=== PATIENT | female | born 2005 | race African-American/Black ===

== ENCOUNTER 2024-01-31 00:51 | Day surgery (SDC) | payer BC, SELFPAY ==
[2024-01-21 10:53] VITALS: BMI 24.7
--- NOTE | 2024-01-21 10:59 | PC.NURSE ---
Report to the Outpatient Waiting Room, entrance under the green pavilion located off [facility], at time _0700_ on date __01/31/24 . Planned Procedure Time: _0900___. Time changes happen often and if your time is changed the preop area will call you the afternoon before. - You and your visitor will be asked to self-screen and do not enter if you have any COVID symptoms. - A mask is optional within the hospital at this time. Patients may have clear liquids (water, carbonated beverages, clear teas, apple juice) until 3 hours prior to surgery with a maximum of 20 ounces. - No food from midnight until time of surgery - Infants may have breast milk until 4 hours before surgery, infant formula 6 hours prior to surgery. - Children will be allowed to drink immediately following surgery. If applicable, please bring a bottle or sippy cup to assist with drinking. Juice, water, soda, and popsicles are readily available. For infants on formula, please bring formula the day of surgery. Pacifiers are allowed. Take the following medications with a SIP of water the morning of surgery: _N/A DO NOT STOP ANY OF YOUR OTHER PRESCRIPTION MEDICATIONS PRIOR TO SURGERY ?EXCEPT THE FOLLOWING Medications to discontinue per physician ____N/A Date to take last dose__N/A Please no make-up, nail portuguese, hairspray, perfume, deodorant, or body powder the day of surgery. No jewelry (including any body piercings) or valuables the day of surgery, leave them at home. Please take a shower or bath the night before, or the morning of, surgery with an antibacterial soap. Wear comfortable, loose fitting clothing. Children are encouraged to wear pajamas. - Jewelry must be removed prior to entering the operating room. Rings and piercings that are not removed may be cut off. - The hospital will not accept responsibility for valuables. - Please leave all valuables, including medications, at home the day of surgery. If you are going home after surgery, a licensed utility worker driver must drive you home. - NO public transportation without another adult if you receive anesthesia. - We recommend that an adult stay with you for 24 hours following discharge. - We also recommend that you do not drive, make important decision, drink alcoholic beverages, or take any drugs that were not prescribed by your health care provider for at least 24 hours after your discharge time. For Pediatric surgeries, we recommend two adults accompany the child home. Follow any additional instructions given to you from your surgeon. If you or anyone in your household have experienced Covid symptoms in the past week, please notify your surgeon or the nurse liaison at the phone number below for possible testing. Telephone instructions given to _Victoria___and asked if any additional questions and then verbalized understanding. Patient advised to call surgeon office or pre surgery nurse liaison [phone] if any additional questions.
--- NOTE | 2024-01-30 17:30 | PM.IMHP ---
H&P: HPI History of Present Illness Date/Time: 01/30/24 17:30 Chief Complaint: recurrent epistaxis Narrative: planned procedure Review of Systems Review of Systems: All systems reviewed & are unremarkable except as noted in HPI and below PMFSH Past Medical History Medical History Allergies Anxiety Headache Family History Family History Father Diabetes mellitus Mother Asthma Hypertension Grandparent Asthma Hypertension Alcoholism Social History Social History Smoking status: Never smoker Alcohol intake: never Substance use: never Living arrangements: with family Occupation/Education: student Spiritual care concerns: No Meds Home Medications and Allergies Home Medications Medication Instructions Recorded Confirmed Type mupirocin 2 % topical ointment 1 applic topical QID #22 grams 07/18/22 01/21/24 Rx etonogestrel 68 mg subdermal See Rx Instructions .Route .COMPLEX 01/21/24 01/21/24 History implant (Nexplanon) Allergies Allergy/AdvReac Type Severity Reaction Status Date / Time No Known Drug Allergies Allergy none Verified 01/21/24 10:44 Exam Narrative: right-sided telangiectatic vessels to Assessment and Plan Assessment and plan (1) Recurrent epistaxis: Code(s): R04.0 - Epistaxis Status: Acute Assessment and Plan: plan OR right-sided nasal cautery will use bipolar possibly suction Bovie risks discussed bleeding infection damage to surrounding structures need for further procedures need for cautery septal perforation failure to resolve symptoms patient voiced understanding of these risks.? Mask anesthesia okay from my standpoint.
[2024-01-31] VITALS (9 sets, daily range): BP systolic 92–131; BP diastolic 51–80; PULSE 42–61; RESP 11–18; TEMP 36.1–36.3; O2SAT 99–100
--- NOTE | 2024-01-31 07:18 | WPDHPUPDATE1 ---
History and Physical Update Update Date/Time: 01/31/24 07:18 History and Physical has been reviewed, including an updated exam of the patient. There are NO changes in the patient's condition. Risks, benefits, and alternatives have been discussed and questions answered. Patient agrees to proceed with procedure.
--- NOTE | 2024-01-31 08:51 | WPDANESEPPF ---
Anes - Initial Pre Proc Eval Procedure: Operation Date: 01/31/24 10:00 Proposed Procedures p Right Side Nasal Cautery - Michael Hwang MD Date/Time: 01/31/24 08:51 Surgeon: Michael Hwang MD Pre Op Diagnosis: Recurrent Epistaxis Patient Data Age: 18 Gender: F Height: 1.66 m Weight: 68.49 kg Last Vital Signs O2 Del Method Room Air 01/21/24 11:09 Allergies Allergy/AdvReac Type Severity Reaction Status Date / Time No Known Drug Allergies Allergy none Verified 01/31/24 09:12 Home Medications Medication Instructions Recorded Confirmed Type mupirocin 2 % topical ointment 1 applic topical QID #22 grams 07/18/22 01/31/24 Rx etonogestrel 68 mg subdermal See Rx Instructions .Route .COMPLEX 01/21/24 01/31/24 History implant (Nexplanon) Patient hx anesthesia problems: none Family hx anesthesia problems: none Results Review: All pre-operative results and documents have been reviewed as part of the pre-operative evaluation. [facility] Past Medical History Medical History Allergies Anxiety Headache Family History Family History Father Diabetes mellitus Mother Asthma Hypertension Grandparent Asthma Hypertension Alcoholism Social History Social History Smoking status: Never smoker Alcohol intake: never Substance use: never Living arrangements: with family Occupation/Education: student Spiritual care concerns: No Anes - Eval Final PreProcedure Day of Procedure 01/31/24 08:51 Patient weight: overweight Heart: regular rate and rhythm Lungs: clear to auscultation Airway: Mallampati scale class III Neurological: alert and oriented Last oral intake: >/= 8 hours ASA classification: II Emergent: no Anesthetic plan: proceed Anesthesia type and monitoring: general LMA and standard monitoring Results Review: All pre-operative results and documents have been reviewed as part of the pre-operative evaluation. Informed Consent: The patient's anesthetic plan and its attendant risks and benefits were discussed with the patient/family/POA. Questions were solicited and answers provided to the satisfaction of the patient/family/POA.
[2024-01-31] MEDS: ACETAMINOPHEN 500 MG TABLET 1000 MG PO (09:02)
[2024-01-31] MEDS: LACTATED RINGERS 1,000 ML 30 ML IV CONT (09:04)
[2024-01-31] MEDS: OXYMETAZOLINE HCL 0.05% NAS 15 ML BTL (*BKC) 1 SPRAY NASAL (09:52)
[2024-01-31] MEDS: MUPIROCIN 2% OINT 22 GM TUBE 1 APPLIC EACH NARE (09:52)
--- NOTE | 2024-01-31 10:08 | P.OP_ITS ---
Procedure Note - Detailed Date of Procedure 01/31/24 Pre-op Diagnosis Recurrent Epistaxis Post-op Diagnosis Same Procedure Performed Nasal endoscopy, bilateral nasal cautery Surgeon Michael Hwang MD Anesthesia General ( LMA) Indications see above Findings right-sided 2 telangiectatic vessels 1 anterior 1 several cm posterior left- sided 1 telangiectatic vessel slightly behind the right-sided vessel. Mother gave permission to cauterize this vessel as well. Slight overlap between the 2 vessels anteriorly Description of Procedure patient identified consent verified preop. Patient brought to the operating. Time-out performed. General anesthesia induced LMA secured. Patient prepped draped positioned procedure confirmed 2nd time-out performed. Bilateral nasal endoscopy performed 2 vessels on the right side 1 on the left suction Bovie electrocautery setting of 8 was utilized and then 10. Right Afrin-soaked pledgets were placed behind the vessels bilaterally mother informed I recommended cauterize in the left side given that there is only minimal overlap and it looked like it had recently bled slightly. Mother gave consent. Risks discussed of septal possible septal perforation if there is any overlap. Mother voiced understanding. Cautery performed on the right mid vessel slightly larger cauterize this down to the septum right anterior cauterize the vessel down to the septum is was very large this is the culprit vessel most likely with the right-sided recurrent epistaxis. Left vessel gently cauterize not down to the septum. No visible overlap between anterior cautery sites right and left. Mupirocin was placed over all of the cautery sites patient tolerated the procedure well less than 1 cc of any bleeding no complications care the patient given back to Anesthesiology I performed all dictated portions of procedure Estimated Blood Loss 1 Packing No Pathology None sent Condition Stable Disposition PACU [facility] Billing Surgery - Charge Forward: Surgery Billing
[2024-01-31] MEDS: fentaNYL CITRATE INJ (*CRX) 100 MCG/2 ML VIAL 25 MCG IV PUSH (10:50)
[2024-01-31] MEDS: oxyCODONE HCL (*CRX) 5 MG TAB IR PO (12:00)
== END 2024-01-31 12:10 | disposition home or self-care (01) ==
PROVIDERS: PCP Pediatrics; Visit Provider Otolaryngology
PROC: (CPT 31238; principal; 2024-01-31 10:00)
DX: R04.0 Epistaxis (principal)
CPT/HCPCS: 31238; A9270; J1100; J2250; J2405; J2704; J3010; J7120

== ENCOUNTER 2024-06-21 16:31 | Emergency (ER) | payer BC, SELFPAY ==
--- NOTE | ~2024-06-21 | US_ITS ---
US pelvic complete w TV Ordering provider: Francisca Gracia PA-C History: . ovarian cyst, pelvic pain, r/o torsion . Comparison: None. Technique: Transabdominal and endovaginal ultrasound of the pelvis (Doppler ultrasound interrogation techniques used as needed for this exam.) FINDINGS: CERVIX: Normal. UTERUS: Measures 7.9x 4.6x 4.3 cm in length which is within normal limits and is anteverted. No myom etrial masses. ENDOMETRIUM: Normal in thickness. Minimal fluid in the area of the left adnexa. RIGHT OVARY: Normal in size measuring 4.2x 3.8x 3.3 Normal echotexture. Doppler vascular flow present . Large cyst is seen measuring 4.1 x 3.8 x 3.3 cm. LEFT OVARY: Normal in size measuring 2.7x 1.2x 2.9 cm. Normal echotexture. Doppler vascular flow present. ADNEXA: Normal. No mass. IMPRESSION: Large right ovarian cyst. Minimal fluid in the left adnexal area. Otherwise, normal pelvic ultrasound . Reviewed, dictated and finalized at location A. IMPRESSION: Large right ovarian cyst. Minimal fluid in the left adnexal area. Otherwise, no rmal pelvic ultrasound.
--- NOTE | ~2024-06-21 | CT_ITS ---
CT abdomen pelvis w con Ordering provider: Francisca Gracia PA-C History: 18 years Female with . lower abdominal pain . Comparison: None. Technique: CT abdomen and pelvis with IV and without oral contrast. Automated exposure control and it erative reconstruction technique were employed. The dose-length product was 209.07 mGy-cm. 100 mL Omn ipaque 350 was given IV. Findings: VISUALIZED LOWER CHEST: Normal. UPPER ABDOMINAL ORGANS: Liver: Normal. Gallbladder: Normal. Spleen: Normal. Stomach/duodenum: Normal. Pancreas: Normal. Adrenals: Normal. Kidneys: Fullness of the renal pelvis bilaterally more on the left side which may indicate pelviurete meagan junction stenosis or due to distended urinary bladder.. PELVIC ORGANS: The bladder is normal. Right ovarian cyst measuring 5 cm. Hydrosalpinx is a possibili ty. Further evaluation advised. BOWEL AND MESENTERY: Colon: No evidence of diverticulitis.. The appendix is not demonstrated. Small Bowel: Normal. No obstruction. Peritoneum/mesentery: No free air. Minimal Free fluid seen in the right side of the pelvis. No mesent donna lymphadenopathy. Prominent vessel is seen originating from the inferior mesenteric vein extendin g to the right side with hyperdense material seen in the before meals: Which may be hemorrhagic or ma lformation in the wall of the colon further evaluation with colonoscopy is advised. RETROPERITONEUM: Normal aorta. No retroperitoneal lymphadenopathy. MUSCULOSKELETAL: Superficial soft tissues: The superficial soft tissues are normal. Bones: Normal spine. IMPRESSION: 1. No evidence of appendicitis, diverticulitis or intestinal obstruction. Hyperdense material seen i n the cecum and ascending colon which is not extending in the bowel may indicate AVM. Although less l ikely bleeding. Colonoscopy is advised for evaluation. 2. Hypodensity in the right side today to assess which may indicate a cyst in the ovary versus a hyd rosalpinx. Further evaluation advised. 3. Minimal fullness of the renal pelvis bilaterally which may be due to overdistended bladder. Follo w-up advised Reviewed, dictated and finalized at location A. IMPRESSION: 1. No evidence of appendicitis, diverticulitis or intestinal obstruction. Hype rdense material seen in the cecum and ascending colon which is not extending in the bowel may indicate AVM. Although less likely bleeding. Colonoscopy is advi sed for evaluation. 2. Hypodensity in the right side today to assess which may indicate a cyst in the ovary versus a hydrosalpinx. Further evaluation advised. 3. Minimal fullness of the renal pelvis bilaterally which may be due to overdi stended bladder. Follow-up advised
[2024-06-21 16:33] VITALS: BP 118/84; PULSE 90; RESP 16; TEMP 36.9; O2SAT 100
[2024-06-21 16:52] LABS: Basophils Percent Auto 0.3 % (0.2-1.2); Eosinophils Percent Auto 0.1 % (0-4.4); Hematocrit 42.3 % (37.0-47.0); Hemoglobin 14.7 g/dL (12.0-15.0); Immature Granulocyte Absolute 0.03 K/mm3 (0.00-0.031); Immature Granulocyte Percent A 0.3 % (0-0.5); Lymphocytes Absolute Auto 2.37 K/mm3 (0.9-3.2); Mean Corpuscular HGB Conc 34.8 g/dl (32-36); Mean Corpuscular Hemoglobin 31.8 pg (26-34); Mean Corpuscular Volume 91.6 fl (80-100); Mean Platelet Volume 10.4 fl (7.4-10.4); Monocytes Absolute Auto 0.7 K/mm3 (0.1-0.6); Monocytes Percent Auto 6.8 % (2.6-8.5); Neutrophils Absolute Auto 6.8 K/mm3 (1.3-6.7); Neutrophils Percent Auto 68.5 % (45.5-73.1); Platelet Count Result 263 k/mm3 (150-375); Red Blood Count 4.62 M/mm3 (4.2-5.4); Red Cell Distribution Width 12.3 % (11.5-14.5); White Blood Count 9.9 K/mm3 (4.5-10.0)
[2024-06-21 17:02] LABS: Alanine Aminotransferase 20 U/L (6-35); Albumin Level 4.8 g/dL (3.7-5.6); Alkaline Phosphatase 67 U/L (45-116); Anion Gap 7 mmol/L (4-12); Aspartate Amino Transferase 25 U/L (14-36); Bilirubin,Total 2.1 mg/dL (0.2-1.3); Blood Urea Nitrogen 7 mg/dL (8-21); Calcium 9.5 mg/dL (8.9-10.7); Carbon Dioxide 24 mmol/L (22-30); Chloride 101 mmol/L (98-107); Estimated CRCL calculation 115 ml/min; Estimated Glomerular Filt Rate > 60; Glucose 78 mg/dL (65-110); Lipase 72 U/L (23-300); Potassium 3.1 mmol/L (3.4-5.0); Sodium 132 mmol/L (134-143)
--- NOTE | 2024-06-21 18:07 | ED.ABDPAIN ---
HPI - Abdominal Pain General Chief Complaint: Abdominal Pain Stated Complaint: abd pain Time Seen by Provider: 06/21/24 17:54 Source: patient Mode of arrival: ambulatory Limitations: no limitations History of Present Illness HPI narrative: This is a 18 year old female that presents to the ER for lower abdominal pain. Ongoing since last night. Reports associated nausea. Denies fever, vomiting, diarrhea, dysuria or hematuria. Related Data Home Medications Medication Instructions Recorded Confirmed etonogestrel 68 mg subdermal See Rx Instructions .Route .COMPLEX 01/21/24 02/19/24 implant (Nexplanon) Allergies Allergy/AdvReac Type Severity Reaction Status Date / Time No Known Drug Allergies Allergy none Verified 06/21/24 17:54 Review of Systems Review of Systems: CONSTITUTIONAL: Denies fever GASTROINTESTINAL: Reports abdominal pain, nausea. Denies vomiting, or diarrhea. GENITOURINARY: Denies dysuria or hematuria. All systems reviewed & are unremarkable except as noted in HPI and below PMFSH Past Medical History Medical History Allergies Anxiety Headache Family History Family History Father Diabetes mellitus Mother Asthma Hypertension Grandparent Asthma Hypertension Alcoholism Social History Social History Smoking status: Never smoker Alcohol intake: never Substance use: never Living arrangements: with family Occupation/Education: student Spiritual care concerns: No Exam Narrative: GENERAL: Well-appearing, well-nourished, and in no acute distress. HEAD: Normocephalic, atraumatic. EYES: EOMI. CHEST: Clear to auscultation. No respiratory distress. No wheezes rales or rhonchi HEART: Regular rate and rhythm. No murmur heard. Normal peripheral pulses. ABDOMEN: Soft, nondistended, normal active bowel sounds. Tender to palpation throughout the lower abdomen, without guarding EXTREMITIES: Normal range of motion. No edema. SKIN: Warm, dry, no rash. NEURO: No focal deficits. Alert and oriented x3. PSYCH: Normal mood and affect Course Course Emergency Course: Patient and family updated on workup and agree with plan of care Vital Signs Vital signs: Vital Signs Temperature 98.4 F 06/21/24 16:33 Pulse Rate 90 06/21/24 16:33 Respiratory Rate 16 06/21/24 16:33 Blood Pressure 118/84 06/21/24 16:33 Pulse Oximetry 100 06/21/24 16:33 Temperature 98.1 F 06/21/24 23:36 Pulse Rate 66 06/21/24 23:36 Respiratory Rate 17 06/21/24 23:36 Blood Pressure 120/66 06/21/24 23:36 Pulse Oximetry 99 06/21/24 23:36 MDM - Abdominal Pain MDM Narrative Medical decision making narrative: patient presents to the emergency department for abdominal pain and nausea. Ongoing since yesterday. She is afebrile and nontoxic appearing. Her vitals are stable. Cbc without leukocytosis. Metabolic panel some evidence of dehydration. Patient hydrated with a L of IV fluids in the ER. Urine with possible evidence of infection. This will be sent for culture. Patient will be started on oral antibiotics. test is negative. CT abdomen and pelvis shows an abnormality in the colon, recommend further evaluation with colonoscopy. Right ovarian cyst. Minimal fullness in the bilateral renal pelvis. Pelvic ultrasound shows a large right ovarian cyst. Minimal free fluid in left adnexa, otherwise normal pelvic ultrasound. Normal vascular flow to the ovaries. Patient and family updated on workup and agree with plan of care. She is to follow-up with gynecology and Gastroenterology. She was given warnings to return to the Differential Diagnosis Differential diagnosis: Likely acute appendicitis, calculus of kidney, constipation, diverticulitis and other (UTI, ovarian cyst, ovarian torsion, dehydration, electrol
[2024-06-21] MEDS: SODIUM CHLORIDE 0.9% IV 1,000 ML 999 ML IV CONT (18:23)
[2024-06-21] MEDS: ONDANSETRON INJ 4 MG/2 ML VIAL IV PUSH (18:24)
[2024-06-21] MEDS: FAMOTIDINE 20 MG/2 ML VIAL IV PUSH (18:25)
[2024-06-21 18:29] VITALS: BP 107/71; PULSE 59; RESP 20; O2SAT 100
[2024-06-21 18:51] LABS: BEDSIDEPREGUCG Negative (Negative)
[2024-06-21 19:41] LABS: Bacteria Urine 1+ /hpf; Non Pathogenic Casts 0-2; RBC Urine 0-2 /hpf (0-2); Squamous Epithelial Cell Urine Moderate /hpf (Few)
[2024-06-21 19:47] LABS: Add Urine Microscopic? YES; Appearance Urine Clear (Clear); Color Urine Yellow (Yellow)
[2024-06-21 19:48] LABS: Bilirubin Urine Negative (Negative); Blood Urine Trace-intact (Negative); Glucose Urine UA Negative (Negative); Ketones Urine 3+ mg/dL (Negative); Leukocyte Esterase Ur Trace LEU/UL (Negative); Nitrate Urine Negative (Negative); Protein Urine Negative (Negative); Specific Grav Ur <= 1.005 (1.001-1.035); Urobilinogen Urine 0.2 mg/dL (<2.0); pH Urine 6.5 (5.0-9.0)
[2024-06-21] MEDS: METOCLOPRAMIDE HCL INJ 10 MG/2 ML VIAL IV PUSH (21:16)
[2024-06-21] MEDS: diphenhydrAMINE HCl INJ 50 MG/ML VIAL 25 MG IV PUSH (21:17)
[2024-06-21 21:19] VITALS: BP 134/77; PULSE 93; RESP 16; TEMP 36.8; O2SAT 100
[2024-06-21 23:36] VITALS: BP 120/66; PULSE 66; RESP 17; TEMP 36.7; O2SAT 99
== END 2024-06-21 23:36 | disposition home or self-care (01) ==
PROVIDERS: Emergency Provider Physician Assistant; PCP Pediatrics
DX: N39.0 Urinary tract infection, site not specified (principal); E87.6 Hypokalemia; N83.201 Unspecified ovarian cyst, right side; F41.9 Anxiety disorder, unspecified
CPT/HCPCS: 36415; 74177; 76830; 76856; 80053; 81001; 81025; 83690; 83735; 85025; 87086; 87088; 96361; 96374; 96375; 99284; J1200; J2405; J2765; J7030; Q9967

== ENCOUNTER 2024-06-25 13:12 | Outpatient (CLI) | payer BC, SELFPAY | END 2024-06-25 13:13 | disposition home or self-care (01) | PROVIDERS: PCP Pediatrics; Visit Provider Obstetrics & Gynecology | DX: N83.201 Unspecified ovarian cyst, right side (principal) | CPT/HCPCS: 36415; 86850; 86900; 86901 ==

== ENCOUNTER 2024-06-26 03:28 | Day surgery (SDC) | payer BC, SELFPAY ==
--- NOTE | 2024-06-23 12:52 | PM.IMHP ---
H&P: HPI History of Present Illness Date/Time: 06/23/24 12:52 Chief Complaint: right ovarian cyst and pelvic pain Narrative: pleasant 18-year-old 0 the benefit for diagnostic laparoscopy with cystectomy secondary to severe pelvic pain. She was seen in the ER and her ovarian cyst was seen she rates her pain 8/10 and has required narcotic pain medicine. She will undergo laparoscopy cystotomy cystectomy. Risks and benefits were including min exclusive of , aspiration bleeding, transfusion, perforation injury bowel, bladder, ureters, or other internal organs the new for open laparotomy. She had all questions answered. She received the ACOG entitled laparoscopy she proceeded PMFSH Past Medical History Medical History Allergies Anxiety Headache Family History Family History Father Diabetes mellitus Mother Asthma Hypertension Grandparent Asthma Hypertension Alcoholism Social History Social History Smoking status: Never smoker Alcohol intake: never Substance use: never Living arrangements: with family Occupation/Education: student Spiritual care concerns: No Meds Home Medications and Allergies Home Medications Medication Instructions Recorded Confirmed Type etonogestrel 68 mg subdermal See Rx Instructions .Route .COMPLEX 01/21/24 02/19/24 History implant (Nexplanon) mupirocin 2 % topical ointment 1 applic topical BID #22 grams 02/19/24 02/19/24 Rx nitrofurantoin 100 mg PO Q12H 5 days #10 caps 06/21/24 Rx monohydrate/macrocrystals 100 mg capsule (Macrobid) ondansetron 4 mg disintegrating 4 mg PO Q8H PRN nausea and 06/21/24 Rx tablet vomiting #10 tabs potassium chloride 20 mEq oral 20 meq PO DAILY 3 days #30 ea 06/21/24 Rx packet Allergies Allergy/AdvReac Type Severity Reaction Status Date / Time No Known Drug Allergies Allergy none Verified 06/21/24 17:54 Exam Const: General: cooperative, healthy appearing, comfortable and average body habitus Orientation/consciousness: oriented to person, oriented to place and oriented to time Resp: Effort & Inspection: normal respiratory effort Cardio: Rate: regular rate Rhythm: regular rhythm Heart sounds: S1 normal heart sound present and S2 normal heart sound present GI: Inspection: normal to inspection : Speculum Exam - Vagina: normal appearance of the vagina Speculum Exam - Cervix: normal appearance of the cervix Bimanual exam- vagina & uterus: Uterine tenderness Bimanual Exam- Adnexa, other: tender on the right Assessment and Plan Assessment and plan (1) Right ovarian cyst: Code(s): N83.201 - Unspecified ovarian cyst, right side Status: Acute (2) Pelvic pain: Code(s): R10.2 - Pelvic and perineal pain Status: Acute Assessment and Plan: proceeded with laparoscopy and right cystectomy
[2024-06-24 09:52] VITALS: BMI 23.3
--- NOTE | 2024-06-24 09:59 | PC.NURSE ---
Report to the Outpatient Waiting Room, entrance under the green pavilion located off [facility], at time _0915_ on date _[id number]_. Planned Procedure Time: _1115_.? Time changes happen often and if your time is changed the preop area will call you the afternoon before. - You and your visitor will be asked to self-screen and do not enter if you have any COVID symptoms. Please call surgeon if you need to reschedule. - A mask is optional within the hospital at this time. Patients may have clear liquids (water, carbonated beverages, clear teas, apple juice) until 3 hours prior to surgery with a maximum of 20 ounces. - No food from midnight until time of surgery and no smoking Take only the following medications with a SIP of water on the morning of surgery: ___Nitrofuratoin DO NOT STOP ANY OF YOUR OTHER PRESCRIPTION MEDICATIONS PRIOR TO SURGERY EXCEPT THE FOLLOWING Medications to discontinue per physician ____None Date to take last dose Please no make-up, nail estonian, hairspray, perfume, deodorant, or body powder the day of surgery.? No jewelry (including any body piercings) or valuables the day of surgery, leave them at home.? Please take a shower or bath the night before, or the morning of, surgery with an antibacterial soap.? Wear comfortable, loose fitting clothing.? - Jewelry must be removed prior to entering the operating room.? Rings and piercings that are not removed may be cut off. - The hospital will not accept responsibility for valuables.? - Please leave all valuables, including medications, at home the day of surgery. If you are going home after surgery, a licensed truck driver teamster must drive you home.? - NO public transportation without another adult if you receive anesthesia. - We recommend that an adult stay with you for 24 hours following discharge. - We also recommend that you do not drive, make important decision, drink alcoholic beverages, or take any drugs that were not prescribed by your health care provider for at least 24 hours after your discharge time. Follow any additional instructions given to you from your surgeon. Telephone instructions given to _Victoria__and asked if any additional questions and then verbalized understanding. Patient advised to call surgeon office or pre surgery nurse liaison [phone] if any additional questions.
[2024-06-26] VITALS (9 sets, daily range): BP systolic 109–152; BP diastolic 68–90; PULSE 60–118; RESP 12–16; TEMP 36.3–36.8; O2SAT 100
--- NOTE | 2024-06-26 05:30 | WPDHPUPDATE1 ---
History and Physical Update Update Date/Time: 06/26/24 05:30 History and Physical has been reviewed, including an updated exam of the patient. There are NO changes in the patient's condition. Risks, benefits, and alternatives have been discussed and questions answered. Patient agrees to proceed with procedure.
[2024-06-26] MEDS: LACTATED RINGERS 1,000 ML 30 ML IV CONT ×2 (10:00→12:40)
[2024-06-26] MEDS: ACETAMINOPHEN 500 MG TABLET 1000 MG PO (10:00)
[2024-06-26] MEDS: KETOROLAC 15 MG/ML VIAL (*BKC) IV PUSH (10:05)
--- NOTE | 2024-06-26 10:40 | P.PNAN_ITS ---
Anes - Initial Pre Proc Eval Procedure: Operation Date: 06/26/24 11:15 Proposed Procedures p Laparoscopic Right Ovarian Cystectomy - Joseph Tao MD Date/Time: 06/26/24 10:40 Surgeon: Joseph Tao MD Pre Op Diagnosis: Pelvic Pain, Right Ovarian Cyst Patient Data Age: 18 Gender: F Height: 1.65 m Weight: 62.7 kg Last Vital Signs Temp 36.3 C L 06/26/24 09:46 Pulse 96 06/26/24 09:46 Resp 16 06/26/24 09:46 BP 121/90 06/26/24 09:46 Pulse Ox 100 06/26/24 09:46 O2 Del Method Room Air 06/26/24 09:46 Allergies Allergy/AdvReac Type Severity Reaction Status Date / Time No Known Drug Allergies Allergy none Verified 06/26/24 09:44 Home Medications Medication Instructions Recorded Confirmed Type etonogestrel 68 mg subdermal See Rx Instructions .Route .COMPLEX 01/21/24 06/26/24 History implant (Nexplanon) nitrofurantoin 100 mg PO Q12H 5 days #10 caps 06/21/24 06/26/24 Rx monohydrate/macrocrystals 100 mg capsule (Macrobid) ondansetron 4 mg disintegrating 4 mg PO Q8H PRN nausea and 06/21/24 06/26/24 Rx tablet vomiting #10 tabs hydrocodone 5 mg-acetaminophen 325 1 tablet PO Q4H PRN pain #20 tabs 06/26/24 Rx mg tablet Laboratory Tests 06/26/24 10:06 Beta HCG, Quant Pending Patient hx anesthesia problems: none Family hx anesthesia problems: none Results Review: All pre-operative results and documents have been reviewed as part of the pre- operative evaluation. [facility] Past Medical History Medical History Allergies Anxiety Headache Family History Family History Father Diabetes mellitus Mother Asthma Hypertension Grandparent Asthma Hypertension Alcoholism Social History Social History Smoking status: Never smoker Alcohol intake: current Substance use: never Substance use type: marijuana Other substance usage details: twice a week. Living arrangements: with family Occupation/Education: student Spiritual care concerns: No Anes - Eval Final PreProcedure Day of Procedure 06/26/24 10:40 Patient weight: normal Heart: regular rate and rhythm Lungs: clear to auscultation Airway: Mallampati scale class II Neurological: alert and oriented Last oral intake: >/= 8 hours ASA classification: II Anesthetic plan: proceed Anesthesia type and monitoring: general ETT and standard monitoring Results Review: All pre-operative results and documents have been reviewed as part of the pre- operative evaluation. Informed Consent: The patient's anesthetic plan and its attendant risks and benefits were discussed with the patient/family/POA. Questions were solicited and answers provided to the satisfaction of the patient/family/POA.
[2024-06-26] MEDS: SCOPOLAMINE 1 MG PATCH 1 PATCH TRANSDERM (10:46)
[2024-06-26 10:51] LABS: Beta HCG Quantitative < 2.39 mIU/ML
--- NOTE | 2024-06-26 12:28 | P.OP_ITS ---
Procedure Note - Detailed Date of Procedure 06/26/24 Pre-op Diagnosis Pelvic Pain, Right Ovarian Cyst Post-op Diagnosis Other (Pelvic pain /right ovarian cyst/ endometriosis) Procedure Performed laparoscopy destruction cyst destruction endometriosis Surgeon Joseph Tao MD Anesthesia General Indications the 9-year-old female with severe pelvic pain cyst on imaging Findings right ovarian cyst. Otherwise normal-appearing pelvis with 2 small areas of endometriosis along each uterosacral ligament Description of Procedure the patient was prepped draped normal sterile fashion placed in dorsal lithotom y position. Excellent general tracheal anesthesia weighted speculum placed in posterior fornix of vagina. Anterior lip of cervix grasped with single-tooth tenaculum. The Elias's cannula was inserted the cervix and attached to the single-tooth. This will be used later for uterine manipulation. The weighted speculum was removed and bladder drained of clear urine. The gloves were changed. An infraumbilical incision made in the Veress needle passed in the abdomen. Abdomen filled with CO2 gas [id number]. The 5mm trocar advanced with the Optiview and no injury seen. Patient placed in Trendelenburg and a suprapubic incision made. The 5mm trocar advanced under direct visualization assuring no injury. The large right ovarian cyst appeared follicular in nature and was incised with a linear incision draining clear to yellow fluid. The ovary returned to normal size immediately. Two small areas of endometriosis were seen along the right and left uterosacral ligament. These were cauterized at 35 w per 2nd with monopolar cautery. The opposite side appeared within normal limits and photo documentation was undertaken. Irrigation was undertaken to clear. The lower site removed. The upper site removed. The gas after the gas had been removed from the abdomen. The incision was closed with 4 Monocryl and glue instruments vagina. All sponge, needle, instrument counts were correct. There were no immediate complications Estimated Blood Loss 5 Drains No Packing No Pathology None sent Complications No immediate complications Condition Stable Disposition PACU
[2024-06-26] MEDS: fentaNYL CITRATE INJ (*CRX) 100 MCG/2 ML VIAL 25 MCG IV PUSH ×4 (12:46→13:18)
== END 2024-06-26 15:00 | disposition home or self-care (01) ==
PROVIDERS: Anesthesiology; PCP Pediatrics; Visit Provider Obstetrics & Gynecology
PROC: (CPT 49320; principal; 2024-06-26 11:15)
DX: R10.2 Pelvic and perineal pain (principal); N83.201 Unspecified ovarian cyst, right side; N80.3C3 Endometriosis of bilateral uterosacral ligament(s), unspecified depth
CPT/HCPCS: 58662; 36415; 84702; A9270; J1100; J1885; J2250; J2405; J2704; J3010; J7120

== ENCOUNTER 2024-09-25 01:22 | Day surgery (SDC) | payer BC, SELFPAY ==
[2024-09-16 15:57] VITALS: BMI 25.0
[2024-09-25 11:18] VITALS: BP 129/64; PULSE 81; RESP 18; TEMP 36.3; O2SAT 100; BMI 24.6
[2024-09-25] MEDS: LACTATED RINGERS 1,000 ML 150 ML IV CONT (11:28)
[2024-09-25 11:34] LABS: BEDSIDEPREGUCG Negative (Negative)
--- NOTE | 2024-09-25 12:46 | SUR.PREOP ---
Patient and family member updated about delay in procedure due to inpatient emergency case.
--- NOTE | 2024-09-25 12:59 | PM.HPGS ---
History of Present Illness History of Present Illness Consent: Risks, benefits, and alternatives have been discussed and questions answered. Patient agrees to proceed with procedure. Chief complaint: IBS, abn findings on dx imaging Narrative: Sallie Howard is a 18 year old female with constipation that prompted CT scan that showed some thickening in right colon, denies any pain now, never had colonoscopy Review of Systems Review of Systems: All systems reviewed & are unremarkable except as noted in HPI and below PMFSH Past Medical History Medical History (Updated 09/25/24 @ 12:55 by Dean Benjamin DO) Endometriosis Headache Anxiety Allergies Family History Family History Father Diabetes mellitus Mother Asthma Hypertension Grandparent Asthma Hypertension Alcoholism Social History Social History Smoking status: Never smoker Alcohol intake: current Substance use: never Substance use type: does not use Other substance usage details: twice a week. Living arrangements: with family Occupation/Education: student Spiritual care concerns: No Meds Home Medications and Allergies Home Medications ?Medication ?Instructions ?Recorded ?Confirmed ?Type etonogestrel 68 mg subdermal See Rx Instructions .Route .COMPLEX 01/21/24 09/25/24 History implant (Nexplanon) Allergies Allergy/AdvReac Type Severity Reaction Status Date / Time No Known Drug Allergies Allergy none Verified 09/25/24 11:13 Vital Signs Vital Signs - 24 hr 09/25/24 11:18 Temperature 97.4 F L Pulse Rate 81 Respiratory Rate 18 Blood Pressure 129/64 Pulse Oximetry 100 Oxygen Delivery Room Air Exam Const: General: comfortable and no acute distress HENMT: Face/Nose/Sinus: Normal nares present Eyes: General: appearance normal, both eyes and all related structures Neck: Neck: no JVD Resp: Auscultation: clear to auscultation bilaterally Cardio: Rate: regular rate Rhythm: regular rhythm GI: Inspection: non-distended GI Palp: Yes Soft to palpation Skin: General skin exam: normal color Neuro: General: gait normal Speech: normal speech Extrem: General: normal to inspection Psych: Mental Status: mental status grossly normal Assessment and Plan Assessment and plan (1) Abnormal CT scan, colon: Code(s): R93.3 - Abnormal findings on diagnostic imaging of other parts of digestive tract Status: Acute Assessment and Plan: colonoscopy (2) Irritable bowel syndrome with constipation: Code(s): K58.1 - Irritable bowel syndrome with constipation Status: Acute
--- NOTE | 2024-09-25 13:00 | P.PNAN_ITS ---
Anes - Initial Pre Proc Eval Procedure: Operation Date: 09/25/24 12:30 Proposed Procedures p Colonoscopy - José Miguel Mayorga MD Date/Time: 09/25/24 13:00 Surgeon: José Miguel Mayorga MD Pre Op Diagnosis: IBS, abn findings on dx imaging Patient Data Age: 18 Gender: F Height: 1.65 m Weight: 67.2 kg Last Vital Signs Temp 36.3 C L 09/25/24 11:18 Pulse 81 09/25/24 11:18 Resp 18 09/25/24 11:18 BP 129/64 09/25/24 11:18 Pulse Ox 100 09/25/24 11:18 O2 Del Method Room Air 09/25/24 11:18 Allergies Allergy/AdvReac Type Severity Reaction Status Date / Time No Known Drug Allergies Allergy none Verified 09/25/24 11:13 Home Medications ?Medication ?Instructions ?Recorded ?Confirmed ?Type etonogestrel 68 mg subdermal See Rx Instructions .Route .COMPLEX 01/21/24 09/25/24 History implant (Nexplanon) Laboratory Tests 09/25/24 11:29 POC Urine HCG, Qual Negative (Negative) Patient hx anesthesia problems: none Family hx anesthesia problems: none Results Review: All pre-operative results and documents have been reviewed as part of the pre- operative evaluation. [facility] Past Medical History Medical History (Updated 09/25/24 @ 12:55 by Dean Benjamin DO) Endometriosis Headache Anxiety Allergies Family History Family History Father Diabetes mellitus Mother Asthma Hypertension Grandparent Asthma Hypertension Alcoholism Social History Social History Smoking status: Never smoker Alcohol intake: current Substance use: never Substance use type: does not use Other substance usage details: twice a week. Living arrangements: with family Occupation/Education: student Spiritual care concerns: No Anes - Eval Final PreProcedure Day of Procedure 09/25/24 13:00 Patient weight: normal Heart: regular rate and rhythm Lungs: clear to auscultation and normal air movement Airway: Mallampati scale class II Neurological: alert and oriented Last oral intake: >/= 8 hours ASA classification: II Emergent: no Anesthetic plan: proceed Anesthesia type and monitoring: general GIVS and standard monitoring Results Review: All pre-operative results and documents have been reviewed as part of the pre- operative evaluation. Informed Consent: The patient's anesthetic plan and its attendant risks and benefits were discussed with the patient/family/POA. Questions were solicited and answers provided to the satisfaction of the patient/family/POA.
[2024-09-25 13:31] VITALS: BP 109/62; PULSE 60; RESP 18; O2SAT 100
[2024-09-25 13:41] VITALS: BP 120/78; PULSE 62; RESP 18; O2SAT 100
[2024-09-25 13:51] VITALS: BP 113/71; PULSE 52; RESP 18; O2SAT 100
== END 2024-09-25 14:09 | disposition home or self-care (01) ==
PROVIDERS: Anesthesiology; PCP Pediatrics; Referring Provider Nurse Practitioner; Visit Provider Internal Medicine Gastroenterology
PROC: 0DJD8ZZ Inspection of Lower Intestinal Tract, Via Natural or Artificial Opening Endoscopic (ICD-10-PCS; CPT 45378; principal; 2024-09-25 12:30)
DX: R93.3 Abnormal findings on diagnostic imaging of other parts of digestive tract (principal); K58.1 Irritable bowel syndrome with constipation
CPT/HCPCS: 45378; J2003; J2704; J7120